=== PATIENT | female | born 1975 | race African-American/Black ===

== ENCOUNTER → 2017-06-25 | Outpatient (CLI) | payer SELFPAY ==
--- NOTE | 2017-06-26 11:45 | RADIOLOGY REPORT (SQ) ---
EXAM DESCRIPTION: U/S OB 14+ TRNABD 1GES W/O DOP COMPLETED DATE/TIME: 06/25/2017 3:07 pm REASON FOR STUDY: ENCOUNTER FOR SUPRVSN OF NORMAL , THIRD TRIMESTER (Z34.83) Z34.[address] FOR SUPRVSN OF NORMAL , THIRD TRIM COMPARISON: No previous this TECHNIQUE: Static and Dynamic grayscale imaging performed of gravid uterus using transabdominal appr oach. Additional selected color Doppler and spectral images recorded. All stored on PACS. LIMITATIONS: Limited view of the cerebral structures due to gestational aging and head d own in the maternal pelvis FINDINGS: EGA: 34 weeks 2 days CHANA: 08/04/2017 EFW: 2383 g PERCENTILE: Not calculated OLIVIA: 11.4 cm PLACENTA: Anterior PRESENTATION: Cephalic. ANATOMY: HEART RATE: 144 beats per minute. FOUR CHAMBER HEART: Visualized. THREE VESSEL CORD: Yes. CORD INSERTION: Visualized. KIDNEYS AND BLADDER: Visualized. Appear normal. STOMACH: Visualized. Appears normal. SPINE: Normal as visualized. BRAIN AND LATERAL VENTRICLES: Limited visualization. Appear normal. OTHER: No other significant finding. MATERNAL ADNEXA: Maternal ovaries not visualized. CERVICAL LENGTH: Not well seen. OTHER: No other significant finding. IMPRESSION: LIVING INTRAUTERINE . ESTIMATED GESTATIONAL AGE 34 weeks 2 days NO VISUALIZED ANOMALIES. Trimester of : Third trimester - 28 weeks to delivery. TECHNICAL DOCUMENTATION: JOB ID: [id number] [employer]- All Rights Reserved
== END ==
LOC: RAD 13:58
PROVIDERS: ATTEND Nurse Practitioner Women's Health
DX: O09.33 Supervision of pregnancy with insufficient antenatal care, third trimester (principal); O09.523 Supervision of elderly multigravida, third trimester; Z3A.34 34 weeks gestation of pregnancy
CPT/HCPCS: 76805

== ENCOUNTER → 2017-07-02 | Outpatient (CLI) | payer SELFPAY ==
[2017-07-02 08:49] LABS: ALANINE AMINOTRANSFERASE 19 U/L (9-52); ALBUMIN 3.9 g/dL (3.5-5.0); ALKALINE PHOSPHATASE 226 U/L (38-126); ANION GAP 9 (5-19); ASPARTATE AMINO TRANSFERASE 16 U/L (14-36); BILIRUBIN,DIRECT 0.3 mg/dL (0.0-0.4); BILIRUBIN,TOTAL 0.4 mg/dL (0.2-1.3); BLOOD UREA NITROGEN 9 mg/dL (7-20); CALCIUM 10.5 mg/dL (8.4-10.2); CARBON DIOXIDE 25 mmol/L (22-30); CHLORIDE 101 mmol/L (98-107); CREATININE RESULT 0.55 mg/dL (0.52-1.25); GLUCOSE 102 mg/dL (75-110); POTASSIUM 4.2 mmol/L (3.6-5.0); TOTAL PROTEIN 6.9 g/dL (6.3-8.2)
== END ==
LOC: OD 07:40
DX: O09.523 Supervision of elderly multigravida, third trimester (principal)
CPT/HCPCS: 36415; 80053

== ENCOUNTER 2017-07-19 14:59 | Inpatient (IN) | payer SELFPAY ==
[2017-07-19] MEDS ORDERED: DINOPROSTONE 10 MG VAGINAL INSERT.SR PV PRN (16:11)
[2017-07-19] MEDS ORDERED: RINGERS SOLUTION,LACTATED 1,000 ML IV PRN (16:11)
[2017-07-19] MEDS ORDERED: RINGERS SOLUTION,LACTATED 300 ML IV ONE (16:11)
[2017-07-19] MEDS ORDERED: OXYTOCIN/NORMAL SALINE 1,000 ML IV PRN (16:11)
[2017-07-19] MEDS ORDERED: RINGERS SOLUTION,LACTATED 1,000 ML IV ONE (16:11)
[2017-07-19] MEDS ORDERED: OXYTOCIN/NORMAL SALINE 20 UNIT/1,000 ML RTUINJ IV PRN (16:15)
[2017-07-19 16:17] LABS: ABSOLUTE EOSINOPHILS # (AUTO) 0.1 10^3/uL (0.0-0.6); ABSOLUTE LYMPHOCYTES (AUTO) 1.9 10^3/uL (0.5-4.7); ABSOLUTE MONOCYTES (AUTO) 0.5 10^3/uL (0.1-1.4); BASOPHILS % (AUTO) 0.2 % (0-2); HEMATOCRIT 34.1 % (36.0-47.0); HEMOGLOBIN 11.5 g/dL (12.0-15.5); HGB HCT DIFFERENCE 0.4; LYMPHOCYTES % (AUTO) 24.9 % (13-45); MEAN CORPUSCULAR HEMOGLOBIN 31.1 pg (27.0-33.4); MEAN CORPUSCULAR HGB CONC 33.8 g/dL (32.0-36.0); MEAN CORPUSCULAR VOLUME 92 fl (80-97); MONOCYTES % (AUTO) 6.6 % (3-13); SEGMENTED NEUTROPHILS % (AUTO) 67.3 % (42-78); WHITE BLOOD COUNT 7.5 10^3/uL (4.0-10.5)
[2017-07-19 16:31] LABS: ALANINE AMINOTRANSFERASE 27 U/L (9-52); ALBUMIN 3.9 g/dL (3.5-5.0); ALKALINE PHOSPHATASE 273 U/L (38-126); ANION GAP 11 (5-19); ASPARTATE AMINO TRANSFERASE 17 U/L (14-36); BILIRUBIN,DIRECT 0.2 mg/dL (0.0-0.4); BILIRUBIN,TOTAL 0.3 mg/dL (0.2-1.3); BLOOD UREA NITROGEN 12 mg/dL (7-20); CALCIUM 9.6 mg/dL (8.4-10.2); CARBON DIOXIDE 22 mmol/L (22-30); CHLORIDE 102 mmol/L (98-107); CREATININE RESULT 0.57 mg/dL (0.52-1.25); GLUCOSE 75 mg/dL (75-110); POTASSIUM 3.9 mmol/L (3.6-5.0); SODIUM 135.3 mmol/L (137-145)
[2017-07-19 16:49] LABS: URIC ACID 6.5 mg/dL (2.5-7.0)
[2017-07-19 16:51] LABS: APPEARANCE,URINE CLOUDY; BILIRUBIN,URINE NEGATIVE (NEGATIVE); GLUCOSE, URINE NEGATIVE (NEGATIVE); KETONES,URINE NEGATIVE (NEGATIVE); LEUKOCYTE ESTERASE,URINE NEGATIVE (NEGATIVE); NITRITE,URINE NEGATIVE (NEGATIVE); PROTEIN,URINE 30 mg/dL (NEGATIVE); URINE SPECIFIC GRAVITY 1.012; UROBILINOGEN,URINE NEGATIVE mg/dL (<2.0)
[2017-07-19] MEDS ORDERED: OXYTOCIN/NORMAL SALINE 20 UNIT/1,000 ML RTUINJ ONE (17:00)
[2017-07-19 17:10] LABS: URINE BARBITURATES SCREEN NEGATIVE; URINE METHADONE SCREEN NEGATIVE; URINE OPIATES LOW NEGATIVE; URINE PHENCYCLIDINE SCREEN NEGATIVE
[2017-07-19 17:13] LABS: URINE PROTEIN 43.9 mg/dL (<12)
[2017-07-19 17:14] LABS: URINE CREATININE 115.5 mg/dL (15-278)
[2017-07-19 17:44] LABS: AMNISURE (ROM) NEGATIVE (NEGATIVE)
[2017-07-19] MEDS ORDERED: OXYTOCIN/NORMAL SALINE 0 UNIT/0 ML RTUINJ ONE (20:00)
[2017-07-19] MEDS ORDERED: LIDOCAINE 1% INJ-PF (10 MG/ML) 30 ML SDV ONE (20:00)
[2017-07-19] MEDS ORDERED: MISOPROSTOL 0.2 MG TABLET ONE (20:00)
[2017-07-19] MEDS ORDERED: DIPH/PERTUSS(ACELL)/TETANUS VAC/PF 0.5 ML SYR (>=10YO) IM PRN (23:39)
[2017-07-19] MEDS ORDERED: OXYTOCIN/NORMAL SALINE 20,000 UNIT/1,000,000 ML RTUINJ IV PRN (23:39)
[2017-07-19] MEDS ORDERED: ACETAMINOPHEN WITH CODEINE #3 TABLET PO PRN ×2 (23:39)
[2017-07-19] MEDS ORDERED: ZOLPIDEM TARTRATE 5 MG TABLET PO PRN (23:39)
[2017-07-19] MEDS ORDERED: MEASLES,MUMPS&RUBELLA VACC/PF 0.5 ML VIAL SUBCUT PRN (23:39)
[2017-07-19] MEDS ORDERED: DIBUCAINE 1% OINTMENT 28 GM TP PRN (23:39)
[2017-07-19] MEDS ORDERED: BENZOCAINE/MENTHOL AEROSOL SPRAY 56 ML TOP PRN (23:39)
--- NOTE | 2017-07-20 00:53 | Delivery Summary ---
Del Sum A-C Datetime Report Generated by CPN: 07/20/2017 00:52 DELIVERY PERSONNEL DELIVERY PERSONNEL: [id number] Delivery Doctor:: Susan Elmore MD Labor and Delivery Nurse:: Susan Montero RNgluing machine feeder Nurse:: Carmen Rivera RN Wood Processing Worker/SCRAPER HAND: Sana Beckfordr, FOUNTAIN VENDING MECHANIC Additional Personnel: : Ondina Rodriguez RN MATERNAL INFORMATION Delivery Anesthesia: None Medications After Delivery: Pitocin Drip 20 Units/1000ml NSS; Other-Please Comment Meds After Delivery Comment: Cytotec 1000 mcg KS Estimated Blood Loss (ml): 150 Maternal Complications: Other Other Maternal Complications: Oligo, GDM, AMA and late PNC Provider Comments: Pt progressed to over intact perineum of male with apgars of 8 and 7. Head delivered OA. Shoulders and body delivered easliy. CARPENTRY SPECIALIST/OP bulb suctioned. Cord clamped and cut. Placenta spont and intact. Infant to nursery for retractinons. Mom doing well. LABOR SUMMARY EDC: 07/29/2017 00:00 No. Babies in Womb: 1 Attempted: No Labor Anesthesia: None LABOR INFORMATION Reason for Induction: Oligohydramnios Onset of Labor: 07/19/2017 20:41 Complete Dilatation: 07/19/2017 23:20 Oxytocin: Induction Group B Beta Strep: negative Antibiotics # of Doses: 0 Steroids Given: None Reason Steroids Not Administered: Not Applicable MEMBRANES Membranes Rupture Method: Artificial Rupture of Membranes: 07/19/2017 23:18 Length of Rupture (hr): 0.07 Amniotic Fluid Color: Clear Amniotic Fluid Amount: Small Amniotic Fluid Odor: Normal STAGES OF LABOR Stage 1 hr: 2 Stage 1 min: 39 Stage 2 hr: 0 Stage 2 min: 2 Stage 3 hr: 0 Stage 3 min: 4 Total Time in Labor hr: 2 Total Time in Labor min: 45 VAGINAL DELIVERY Episiotomy: None Laceration Extension: N/A Laceration Type: None Laceration Repair: No Sponge Count Correct: N/A Sharps Count Correct: N/A CSECTION DELIVERY Primary Indication: N/A Secondary Indication: N/A CSection Incidence: N/A Labor: N/A Elective: N/A CSection Incision: N/A BABY A INFORMATION Infant Delivery Date/Time: 07/19/2017 23:22 Method of Delivery: Vaginal Born in Route : No : N/A Forceps: N/A Vacuum Extraction: N/A Shoulder Dystocia : No PRESENTATION/POSITION BABY A Presentation: Cephalic Cephalic Presentation: Vertex Breech Presentation: N/A PLACENTA INFORMATION BABY A Placenta Delivery Time : 07/19/2017 23:26 Placenta Method of Delivery: Spontaneous Placenta Status: Delivered SCORES BABY A Heart Rate 1 min: >100 bpm Resp Effort 1 min: Good Cry Reflex Irritability 1 min: Cough or Sneeze or Pulls Away Muscle Tone 1 min: Some Flexion of Extremities Color 1 min: Body [place], Extremities Blue Resuscitation Effort 1 min: Tactile Stimulation SCORE 1 MIN: 8 Heart Rate 5 min: >100 bpm Resp Effort 5 min: Slow, Irregular Reflex Irritability 5 min: Cough or Sneeze or Pulls Away Muscle Tone 5 min: Some Flexion of Extremities Color 5 min: Body [place], Extremities Blue Resuscitation Effort 5 min: Tactile Stimulation SCORE 5 MIN: 7 INFANT INFORMATION BABY A Gestational Age at Delivery: 38.4 Gestational Status: Early Term- 37- 38.6 Weeks Infant Outcome : Liveborn Infant Condition : Stable Infant Sex: Male IDENTIFICATION BABY A Verification Date/Time: 07/19/2017 23:31 ID Band Number: [id number] Mother's Name Verified: Yes Infant RN Verifying Infant: S. Letibalbinoir, RN Additional Verifying Personnel: DEb Tee, SCRAPER HAND/US WEIGHT/LENGTH BABY A Infant Birthweight (gm): 2940 Weight (lb): 6 Weight (oz): 8 Infant Length (in): 19.25 Infant Length (cm): 48.90 CORD INFORMATION BABY A No. Cord Vessels: 3 Nuchal Cord : N/A Cord Blood Taken: Yes-For Eval (Mom's Blood Type - or O+) Infant Suction: Mouth; Nose ASSESSMENT BABY A Infant Complications: Oligohydramnios Physical Findings at Delivery: Molding of the Head Infant Respirations: Intercostal Retractions; Sternal Retractions Skin to Skin: Yes Sugar Cane Farm Manager/ALS Called : No Care By: Aileen Rodriguez RN/Ramon Rivera RN Transferred To: Nursery BABY B INFORMATION : N/A SIGNATURES Signature: with User ID: [email or web address]
--- NOTE | 2017-07-20 01:44 | Admission Physical ---
Datetime Report Generated by CPN: 07/20/2017 01:44 CURRENT ADMISSION Hx Assessment: The History has been Reviewed and is Current Chief Complaint: Scheduled Section Indication for Induction: Oligohydramnios Admit Plan: Admit to Unit; Initiate Labor Induction Protocol ALLERGIES Medication Allergies: No Medication Allergies: No Known Allergies (07/19/2017) Medication Allergies: No Known Allergies (02/27/2014) Latex: No Latex Allergies OBSTETRICAL HISTORY EDC: 07/29/2017 00:00 : 8 Para: 7 Term: 7 : 0 SAB: 0 IAB: 0 Ectopic: 0 Livin Cesareans: 0 VBACs: 0 Multiple Births: 0 Gestational Diabetes: No Rh Sensitization: No Incompetent Cervix: No KEEGAN: No Infertility: No ART Treatment: No Uterine Anomaly: No IUGR: No Hx Previous C/S: No Macrosomia: No Hx Loss/Stillborn: No PIH: No Hx : No Placenta Previa/Abruption: No Depression/PP Depression: No PTL/PROM: No Post Hemorrhage: No Current Procedures: None Obstetrical History Comments: PELVIS PROVEN OVER 9 LBS PER PT SEE RECORDS Alcohol: No Marijuana : No Cocaine: No Other Illicit Drugs: No Cigarettes: Never Smoker. [id number] MEDICAL HISTORY Diabetes: No Diabetes Type: Gestational Diabetes Blood Transfusion: No Pulmonary Disease (Asthma, TB): No Breast Disease: No Hypertension: Yes Bond Clerk Surgery: No Heart Disease: No Hosp/Surgery: Yes Autoimmune Disorder: No Anesthetic Complications: No Kidney Disease: No Abnormal Pap Smear: No Neuro/Epilepsy: No Psychiatric Disorders: No Other Medical Diseases: No Hepatitis/Liver Disease: No Significant Family History: No Varicosities/Phlebitis: No Trauma/Violence : No Thyroid Dysfunction: No Medical History Comments: HTN AFTER LAST - RESOLVED CHILDBIRTH INFECTIOUS HISTORY Gonorrhea: No Genital Herpes: No Chlamydia: No Tuberculosis: No Syphilis: No Hepatitis: No HIV/AIDS Exposure: No Rash or Viral Illness: No HPV: No PHYSICAL EXAM General: Normal HEENT: Deferred Neurologic: Normal Thyroid: Deferred Heart: Normal Lungs: Normal Breast: Deferred Back: Normal Abdomen: Normal Genitourinary Exam: Normal Extremities: Normal DTRs: Normal Pelvic Type: Adequate Physical Exam Comments: pelvis proven to 9lbs 7 oz Vital Signs: Reviewed; Within Normal Limits VAGINAL EXAM Dilatation: 4 Effacement: 50 Station: -2 Contraction Comments: q10min FETUS A EGA: 38.4 Monitoring: External US FHR Category: Category I Presentation: Vertex Admit Comment: 42yo @ 38w4d by LMP (verified by 34w u/s) sent from office with oligo finding today after [facility] (total fluid 2cm). O pos, GBS neg, rubella status pending, late entry to care @ 35w1d. Pt. with hx of HTN after one of her deliveries but has never been on medication or induced and denies hx of HTN. Reports +FM, denies LOF/bleeding, failed 3hr GTT today with new Dx of GDM. Admit to unit and start IOL per Dr. Elmore. Pt. lives with friend and and 7 children live in [place]. Denies hx of abuse but does not want to contact family. Discharge consult on admission. Cervix as stated will initiate IOL protocol. PLANS FOR LABOR AND DELIVERY Labor and Delivery: None Pain Management: None Feeding Preference: Both Benefit of Breast Feed Discussed: Yes Circumcision: Yes INFORMED CONSENT Assignment: Susan Elmore MD Signature: with User ID: [email or web address] : with User ID: [email or web address]
[2017-07-20] MEDS: IBUPROFEN 800 MG TABLET PO SCH ×3 (06:41→22:05)
[2017-07-20 07:25] LABS: HEMATOCRIT 35.1 % (36.0-47.0); HEMOGLOBIN 12.1 g/dL (12.0-15.5); HGB HCT DIFFERENCE 1.2; MEAN CORPUSCULAR HGB CONC 34.6 g/dL (32.0-36.0); MEAN CORPUSCULAR VOLUME 93 fl (80-97); RED BLOOD COUNT 3.79 10^6/uL (3.72-5.28); RED CELL DISTRIBUTION WIDTH 14.3 % (11.5-14.0); WHITE BLOOD COUNT 10.3 10^3/uL (4.0-10.5)
[2017-07-20] MEDS: PRENATAL VITAMIN W-O CA NO5/FE FUMARATE/FA CAPSULE PO SCH (10:00)
[2017-07-20] MEDS: DOCUSATE SODIUM 100 MG CAPSULE PO SCH ×2 (10:00→17:48)
[2017-07-20] MEDS: FERROUS SULFATE 325 MG TABLET PO SCH ×2 (10:01→17:48)
[2017-07-20] MEDS: SENNOSIDES/DOCUSATE 8.6-50 MG 1 EACH TABLET PO SCH (10:01)
--- NOTE | 2017-07-20 11:00 | PDOC PROGRESS REPORT ---
Subjective-OB Subjective: Post Delivery Day: 42 year old. Denies any needs at this time Doing well, holding baby, family in room, breast/bottle feding, voiding, eating well Physical Exam (OB) Vital Signs: Temp Pulse Resp BP Pulse Ox 98.1 F 68 15 147/89 H 100 07/20/17 07:55 07/20/17 07:55 07/20/17 07:55 07/20/17 07:55 07/20/17 07:55 Intake & Output 07/19/17 07/20/17 07/21/17 06:59 06:59 06:59 Output Total 2400 Balance -2400 Weight 87.55 kg - PIH/Pre-Eclampsia DTR's: 1 + Clonus: Negative Headache: Absent Epigastric Pain: No Visual Changes: No - Lochia Lochia Amount: Small 10-25 ml Lochia Color: Rubra/Red - Abdomen Description: Soft, Round Hernia Present: No Fundal Description: Firm, Midline Fundal Height: 1/u - 2/u Objective-Diagnostic Laboratory: 07/20/17 07:16 07/19/17 16:00 07/19/17 07/19/17 07/19/17 15:15 15:15 16:00 WBC 7.5 RBC 3.70 L Hgb 11.5 L Hct 34.1 L MCV 92 MCH 31.1 MCHC 33.8 RDW 14.0 Plt Count 244 Seg Neutrophils % 67.3 Lymphocytes % 24.9 Monocytes % 6.6 Eosinophils % 1.0 Basophils % 0.2 Absolute Neutrophils 5.0 Absolute Lymphocytes 1.9 Absolute Monocytes 0.5 Absolute Eosinophils 0.1 Absolute Basophils 0.0 Sodium Potassium Chloride Carbon Dioxide Anion Gap BUN Creatinine Est GFR ( Amer) Est GFR (Non-Af Amer) Glucose Uric Acid 6.5 Calcium Total Bilirubin AST ALT Alkaline Phosphatase Total Protein Albumin Urine Color YELLOW Urine Appearance CLOUDY Urine pH 5.0 Ur Specific [place] 1.012 Urine Protein 30 H Urine Glucose (UA) NEGATIVE Urine Ketones NEGATIVE Urine Blood SMALL H Urine Nitrite NEGATIVE Ur Leukocyte Esterase NEGATIVE Urine WBC (Auto) 10 Urine RBC (Auto) 4 Blood Type Antibody Screen 07/19/17 07/19/17 07/20/17 16:00 16:00 07:16 WBC 10.3 RBC 3.79 Hgb 12.1 Hct 35.1 L MCV 93 MCH 32.0 MCHC 34.6 RDW 14.3 H Plt Count 242 Seg Neutrophils % Lymphocytes % Monocytes % Eosinophils % Basophils % Absolute Neutrophils Absolute Lymphocytes Absolute Monocytes Absolute Eosinophils Absolute Basophils Sodium 135.3 L Potassium 3.9 Chloride 102 Carbon Dioxide 22 Anion Gap 11 BUN 12 Creatinine 0.57 Est GFR ( Amer) > 60 Est GFR (Non-Af Amer) > 60 Glucose 75 Uric Acid Calcium 9.6 Total Bilirubin 0.3 AST 17 ALT 27 Alkaline Phosphatase 273 H Total Protein 7.0 Albumin 3.9 Urine Color Urine Appearance Urine pH Ur Specific [place] Urine Protein Urine Glucose (UA) Urine Ketones Urine Blood Urine Nitrite Ur Leukocyte Esterase Urine WBC (Auto) Urine RBC (Auto) Blood Type O POSITIVE Antibody Screen NEGATIVE Assessment and Plan(PN) - Assessment and Plan (1) Delivery normal Is this a current diagnosis for this admission?: Yes (2) Gestational diabetes Qualifiers: Gestational diabetes mellitus control: diet-controlled Trimester: second trimester Qualified Code(s): O24.410 - Gestational diabetes mellitus in , diet controlled Is this a current diagnosis for this admission?: Yes (3) Oligohydramnios Qualifiers: Fetus number: single or unspecified fetus Is this a current diagnosis for this admission?: Yes - Time Spent with Patient Time with patient: Less than 15 minutes Medications reviewed and adjusted accordingly: Yes - Disposition Anticipated Discharge: Home Within: within 24 hours
[2017-07-21] MEDS: IBUPROFEN 800 MG TABLET PO SCH ×2 (05:59→13:20)
--- NOTE | 2017-07-21 08:25 | PDOC DISCHARGE SUMMARY ---
Final Diagnosis Discharge Date: 07/21/17 - Final Diagnosis (1) Delivery normal Is this a current diagnosis for this admission?: Yes (2) Gestational diabetes Is this a current diagnosis for this admission?: Yes (3) Oligohydramnios Is this a current diagnosis for this admission?: Yes Discharge Data - Discharge Medication Home Medications: Ibuprofen 800 mg PO TID #25 tablet 02/27/14 Pnv No.122/Iron/Folic Acid [ Multi Tablet] 1 each PO DAILY 07/19/17 Docusate Sodium [Colace 100 mg Capsule] 100 mg PO BID #60 capsule 07/21/17 Ferrous Sulfate [Feosol 325 mg Tablet] 325 mg PO BID #60 tablet 07/21/17 Ibuprofen [Motrin 800 mg Tablet] 800 mg PO Q8 #60 tablet 07/21/17 Gestational Age: 38.4 Reason(s) for Admission: Onset of Labor, Gestional Diabetes Procedures: NST Intrapartum Procedure(s): Spontaneous Vaginal Delivery - Data Baby 1 Female at 1 minute: 8 at 5 minutes: 7 Weight: 2940 kg Home with Mother: Yes Complications: No - Diagnosis Test Laboratory: Temp Pulse Resp BP Pulse Ox 98.3 F 71 16 140/86 H 100 07/21/17 07:35 07/21/17 07:35 07/21/17 07:35 07/21/17 07:35 07/21/17 07:35 07/19/17 07/19/17 07/20/17 15:15 16:00 07:16 RBC 3.70 L 3.79 Hgb 11.5 L 12.1 Hct 34.1 L 35.1 L Urine Opiates Screen NEGATIVE - Discharge information/Instructions Discharge Activity: Activity As Tolerated, Pelvic Rest, No tub bath Discharge Diet: Regular Disposition: HOME, SELF-CARE Follow [facility]: [facility] in: 4, Weeks
[2017-07-21] MEDS: PRENATAL VITAMIN W-O CA NO5/FE FUMARATE/FA CAPSULE PO SCH (10:16)
[2017-07-21] MEDS: FERROUS SULFATE 325 MG TABLET PO SCH ×2 (10:16→18:09)
[2017-07-21] MEDS: SENNOSIDES/DOCUSATE 8.6-50 MG 1 EACH TABLET PO SCH (10:16)
[2017-07-21] MEDS: DOCUSATE SODIUM 100 MG CAPSULE PO SCH ×2 (10:16→18:09)
[2017-07-21 10:40] VITALS: BP 137/86
== END 2017-07-21 18:20 | disposition home or self-care (01) | DRG 775 ==
LOC: LR 14:59 → 2S 07-20 01:43
PROVIDERS: ADMIT Specialist; ATTEND Specialist
PROC: 10E0XZZ Delivery of Products of Conception, External Approach (ICD-10-PCS; principal; 2017-07-19)
PROC: 3E033VJ Introduction of Other Hormone into Peripheral Vein, Percutaneous Approach (ICD-10-PCS; 2017-07-19)
PROC: 10907ZC Drainage of Amniotic Fluid, Therapeutic from Products of Conception, Via Natural or Artificial Opening (ICD-10-PCS; 2017-07-19)
PROC: 4A1HXCZ Monitoring of Products of Conception, Cardiac Rate, External Approach (ICD-10-PCS; 2017-07-19)
DX: O41.03X0 Oligohydramnios, third trimester, not applicable or unspecified (principal); O24.420 Gestational diabetes mellitus in childbirth, diet controlled; Z3A.38 38 weeks gestation of pregnancy; Z37.0 Single live birth
CPT/HCPCS: 36415; 80053; 80307; 81001; 82570; 83036; 83615; 84112; 84156; 84550; 85025; 85027; 86592; 86850; 86900; 86901; 88307; J2590; J3490; Q0114